=== PATIENT | male | born 1995 | race African-American/Black ===

== ENCOUNTER 2022-09-22 15:29 | Emergency (ER) | payer BC, OTHER ==
[~2022-09-22] VITALS: Ht 167.6 cm; Wt 75.0 kg
[~2022-09-22 15:29] MED LIST: ALBUTEROL
[2022-09-22 15:47] VITALS: BP 144/88
[2022-09-23] MEDS ORDERED: IBUP-2029 MT (14:32)
== END 2022-09-22 20:30 | disposition left against medical advice (07) ==
LOC: ER 16:20
DX: Z53.21 Procedure and treatment not carried out due to patient leaving prior to being seen by health care provider (principal)

== ENCOUNTER 2022-09-23 10:31 | Emergency (ER) | payer MEDICAID, OTHER ==
[~2022-09-23] VITALS: Ht 167.6 cm; Wt 75.0 kg
[2022-09-23] MEDS ORDERED: MORPHINE SULFATE 4 MG/ML CPJ (NOT FOR IM USE) IV STA (12:27)
[2022-09-23] MEDS ORDERED: SODIUM CHLORIDE 0.9% 1,000 ML IV ONE (12:30)
[2022-09-23 12:44] LABS: BASOPHILS % 1.2 % (0.0-2.0); EOSINOPHILS % 3.5 % (0.0-5.0); HEMATOCRIT. 46.2 % (42.0-52.0); HEMOGLOBIN. 15.6 g/dL (14.0-18.0); MEAN CORPUSCULAR HEMOGLOBIN 32.1 pg (28.0-32.0); MEAN CORPUSCULAR VOLUME 95.3 fL (80.0-94.0); MEAN PLATELET VOLUME 7.7 fl (7.4-10.4); MONOCYTES % 5.8 % (2.0-8.0); NEUTROPHILS % 60.5 % (40.0-76.0); PLATELET 194 x1000/uL (130-400); RED BLOOD CELL COUNT 4.85 mill/uL (4.7-6.1); RED CELL DISTRIBUTION WIDTH 13.2 % (11.6-14.6)
[2022-09-23 12:59] LABS: CLARITY URINE CLEAR (CLEAR); COLOR URINE YELLOW (YELLOW); KETONES URINE TRACE (NEGATIVE); LEUKOCYTE ESTERASE URINE NEGATIVE (NEGATIVE); NITRITE URINE NEGATIVE (NEGATIVE); OCCULT BLOOD URINE TRACE (NEGATIVE); PROTEIN URINE NEGATIVE (NEGATIVE); SPECIFIC GRAVITY URINE 1.026 (1.005-1.030)
[2022-09-23 13:02] LABS: INR 1.1; PROTHROMBIN TIME 11.9 sec (9.6-11.0)
[2022-09-23 13:06] LABS: CHLORIDE 108 mEq/L (98-107)
[2022-09-23] MEDS ORDERED: IBUP-2029 MT (14:32)
[2022-09-23 14:43] VITALS: BP 125/90
[2022-09-23] MEDS ORDERED: KETOROLAC 30MG/ML VIAL IV ONE (14:45)
== END 2022-09-23 15:27 | disposition home or self-care (01) ==
LOC: ER 10:31
DX: R10.31 Right lower quadrant pain (principal); J45.909 Unspecified asthma, uncomplicated; Z79.899 Other long term (current) drug therapy; Z88.0 Allergy status to penicillin
CPT/HCPCS: 36415; 74176; 76870; 80053; 81003; 83690; 85025; 85610; 93976; 96361; 96374; 99285; J1885; J7030; Z7610